=== PATIENT | female | born 1995 ===

== ENCOUNTER → 2024-04-04 15:37 | Outpatient (BNVA) | payer OTHER, SELFPAY | PROVIDERS: PCP Clinical Nurse Specialist Adult Health; Visit Provider Emergency Medicine | DX: R39.9 Unspecified symptoms and signs involving the genitourinary system (principal) | CPT/HCPCS: 81000 ==

== ENCOUNTER 2024-10-23 07:28 | Outpatient (CLI) | payer OTHER, SELFPAY ==
--- NOTE | 2024-10-23 07:38 | US_ITS ---
WS: [id number] US pelvic complete* 64202 HISTORY: R10.2 - Pelvic and perineal pain COMPARISON: None available. Only transabdominal pelvic ultrasound is being performed at the patient's request. Urinary bladder is only minimally distended. Uterus: 7.9 cm x 3.7 cm x 3.9 cm. Normal size anteverted uterus. No fibroid or mass. Endometrium: 0.9 cm. Unremarkable. Neither ovary is identified. No adnexal masses. No free fluid in the cul-de-sac. US/US pelvic complete* [id number] IMPRESSION: 1. Neither ovary identified. No pelvic masses. 2. Normal uterus and endometrium.
--- NOTE | 2024-10-23 07:45 | US_ITS ---
WS: [id number] RIGHT UPPER QUADRANT ULTRASOUND HISTORY: R10.2 - Pelvic and perineal pain COMPARISON: None available. Liver: 12.8 cm in length. Normal size liver and echogenicity. No bile duct dilatation or mass. Portal Vein: Normal hepatopetal flow with monophasic waveform. Gallbladder: Normally distended gallbladder with no stones or wall thickening. CBD: 0.3 cm Pancreas: Normal size and echogenicity. Right kidney: 10.3 cm in length. Normal size and echogenicity. No hydronephrosis or mass. Aorta and IVC: Unremarkable abdominal aorta and IVC. No ascites. US/US abdomen limited [id number] IMPRESSION: Normal right upper quadrant ultrasound.
== END 2024-10-23 07:29 | disposition home or self-care (01) ==
PROVIDERS: PCP Clinical Nurse Specialist Adult Health; Visit Provider Clinical Nurse Specialist Adult Health
DX: R10.2 Pelvic and perineal pain (principal); G89.29 Other chronic pain
CPT/HCPCS: 76705; 76856

== ENCOUNTER → 2024-12-07 14:49 | Outpatient (BNVA) | payer OTHER, SELFPAY | PROVIDERS: PCP Clinical Nurse Specialist Adult Health; Visit Provider Nurse Practitioner Women's Health | DX: R10.2 Pelvic and perineal pain (principal); R31.9 Hematuria, unspecified | CPT/HCPCS: 81000 ==

== ENCOUNTER → 2025-01-11 08:01 | Outpatient (BNVA) | payer OTHER, SELFPAY | PROVIDERS: PCP Clinical Nurse Specialist Adult Health; Visit Provider Nurse Practitioner Women's Health | DX: R10.2 Pelvic and perineal pain (principal) | CPT/HCPCS: 76856 ==

== ENCOUNTER → 2025-01-13 10:41 | Outpatient (BNVA) | payer OTHER, SELFPAY | PROVIDERS: PCP Clinical Nurse Specialist Adult Health; Visit Provider Nurse Practitioner Women's Health | DX: R10.2 Pelvic and perineal pain (principal) | CPT/HCPCS: 81000; 87086 ==